=== PATIENT | female | born 1980 | race Hispanic/Latino ===

== ENCOUNTER 2022-09-29 13:22 | Emergency (ER) | payer SELFPAY ==
[~2022-09-29] VITALS: Ht 162.6 cm; Wt 61.4 kg
[2022-09-29] MEDS ORDERED: ONDANSETRON 4MG 2ML VIAL IV ONE (18:35)
[2022-09-29] MEDS ORDERED: ACETAMINOPHEN 1000MG 100ML IV BAG IV ONE (18:35)
[2022-09-29] MEDS ORDERED: NS 1,000 ML IV ONE (18:35)
[2022-09-29 18:40] LABS: BASO % 0.5 % (0.0-1.0); EOS % 0.5 % (0.0-3.0); HEMATOCRIT 35.2 % (36.0-47.0); HEMOGLOBIN 10.9 g/dl (12.0-15.5); LYMPH # 2.5 10^3/uL (1.5-5.0); LYMPH % 31.3 % (24.0-44.0); MEAN CORPUSCULAR VOLUME 80.7 fl (80.0-96.0); MONO # 0.4 10^3/uL (0.0-0.8); MONO % 5.4 % (2.0-8.0); NEUTROPHILS % 62.2 % (36.0-66.0); PLATELET COUNT, AUTOMATED 313 10^3/uL (150-450); RED BLOOD COUNT 4.36 10^6/uL (4.00-5.40); WHITE BLOOD COUNT 8.1 10^3/uL (4.0-10.0)
[2022-09-29 19:09] LABS: LIPASE 45 U/L (12-53)
[2022-09-29 19:11] LABS: BILIRUBIN,DIRECT 0.2 MG/DL (<0.4)
[2022-09-29 19:12] LABS: ALBUMIN 4.3 G/DL (3.2-5.2); ALKALINE PHOSPHATASE 74 U/L (46-116); ALT/SGPT 17 U/L (7.0-40); AST/SGOT 15 U/L (<34); BLOOD UREA NITROGEN 10 MG/DL (9-23); CALCIUM LEVEL 9.3 MG/DL (8.5-10.1); CARBON DIOXIDE LEVEL 24 MMOL/L (20-31); CHLORIDE LEVEL 104 MMOL/L (98-107); CREATININE FOR GFR 0.59 MG/DL (0.55-1.30); GLOMERULAR FILTRATION RATE > 60.0 (>58); GLUCOSE, FASTING 90 MG/DL (60-100); POTASSIUM SERUM 3.8 MMOL/L (3.5-5.1); SODIUM LEVEL 140 MMOL/L (136-145); TOTAL PROTEIN 7.8 G/DL (5.7-8.2)
[2022-09-29 20:01] LABS: HCG, SERUM QUALITATIVE NEGATIVE (NEGATIVE)
[2022-09-29] MEDS ORDERED: SIME180C25 PO (22:37)
[2022-09-29 23:00] VITALS: BP 114/62
== END 2022-09-29 23:01 | disposition home or self-care (01) ==
LOC: M ED 13:22
DX: R10.11 Right upper quadrant pain (principal); F41.9 Anxiety disorder, unspecified; F10.10 Alcohol abuse, uncomplicated; Z79.52 Long term (current) use of systemic steroids
CPT/HCPCS: 74176; 76705; 80048; 80076; 81000; 81015; 83690; 84703; 85025; 96361; 96374; 96375; 99284; J0131; J2405